=== PATIENT | female | born 1965 | race American Indian/Alaskan Native ===

== ENCOUNTER 2016-06-13 14:10 | Outpatient (CLI) | payer OTHER ==
--- NOTE | 2016-06-13 15:43 | XRay Report ---
ROUTINE CHEST, TWO VIEWS: PA and lateral views demonstrate the heart and mediastinal contour to be of normal size and shape. The lungs are clear and fully expanded and the soft tissues and bony structures are normal. IMPRESSION: Normal study.
== END 2016-06-13 14:11 | disposition home or self-care (01) ==
LOC: SPVIMAG 14:10
PROVIDERS: ATTEND Family Medicine Adult Medicine
DX: R07.9 Chest pain, unspecified (principal)
CPT/HCPCS: 71020

== ENCOUNTER 2017-01-17 06:20 | Emergency (ER) | payer OTHER ==
[2017-01-17] MEDS ORDERED: BABY ASPIRIN PO ONE (07:00)
--- NOTE | 2017-01-17 07:03 | Emergency Department Report ---
ED Chest Pain HPI - General Chief Complaint: Chest Pain Stated Complaint: CP Time Seen by Provider: 01/17/17 06:54 Source: patient Mode of arrival: Ambulatory Limitations: No Limitations - History of Present Illness Initial Comments: This is a 51-year-old -[place] female who presents to the emergency department, dropped off by a friend, with complaint of some chest discomfort and palpitations that started after waking up this morning. The chest discomfort as a dull tingling sensation in the mid chest and patient says that there is some radiation towards the left arm. She denies any shortness of breath, nausea, vomiting, cough, fever, back pain or diaphoresis. She has a past medical history of mitral valve prolapse. She woke up and took a baby aspirin and metoprolol, which she takes chronically, as well as taking a Xanax. No recent travel, immobility. She denies any history of HI, CVA, PE/DVT. Her primary care doctor is a Alecia Cornelius. Patient was here 2 years ago and had a negative myocardial perfusion scan/stress test at that time. - Related Data Home Medications Medication Instructions Recorded Confirmed Last Taken ALPRAZolam [Xanax TAB] 1 mg PO BID 01/10/15 01/17/17 01/16/17 Fluticasone [Flonase] 1 spray NS QDAY 01/10/15 01/17/17 Unknown Metoprolol [Lopressor TAB] 50 mg PO BID 01/10/15 01/17/17 01/16/17 Montelukast [Singulair] 10 mg PO QDAY 01/10/15 01/17/17 01/16/17 Potassium Chloride [K-Dur] 20 meq PO QDAY 01/10/15 01/17/17 01/16/17 Iron Fum,Ps/FA/Vit B with C #9 1 each PO QDAY 09/29/15 01/17/17 01/16/17 [Integra Plus Capsule] Allergies Allergy/AdvReac Type Severity Reaction Status Date / Time sulfamethoxazole Allergy Rash Verified 07/01/13 21:04 [From ] trimethoprim [From ] Allergy Rash Verified 07/01/13 21:04 Heart Score - HEART Score History: Slightly suspicious EKG: Normal Age: 45-65 Risk factors: No known risk factors Troponin: < normal limit HEART Score: 1 - Critical Actions Critical Actions: 0-3 pts:0.9-1.7%risk of adverse cardiac event.Candidate for discharge ED Review of Systems ROS: Stated complaint: CP Other details as noted in HPI Comment: All other systems reviewed and negative Constitutional: denies: chills, fever Eyes: denies: eye pain, eye discharge, vision change ENT: denies: ear pain, throat pain Respiratory: shortness of breath. denies: cough Cardiovascular: chest pain, palpitations. denies: edema Gastrointestinal: denies: abdominal pain, nausea, diarrhea Genitourinary: denies: urgency, dysuria, discharge Musculoskeletal: denies: back pain, joint swelling, arthralgia Skin: denies: rash, lesions Neurological: denies: headache, weakness, paresthesias ED Past Medical Hx - Past Medical History Previous Medical History?: Yes Hx Hypertension: Yes (Hx of mitral valve prolapse no issues being folloed by lisw) Hx Congestive Heart Failure: No Hx GERD: Yes Hx Arthritis: Yes Hx Headaches / Migraines: Yes Hx Psychiatric Treatment: Yes (anxiety stress) Hx HIV: No Additional medical history: MVP, BURSITIS - Surgical History Past Surgical History?: Yes Additional Surgical History: colonoscopy 06/2012, PARTIAL HYSTERECTOMY - Social History Smoking Status: Never Smoker Substance Use Type: None - Medications Home Medications: Home Medications Medication Instructions Recorded Confirmed Last Taken Type ALPRAZolam [Xanax TAB] 1 mg PO BID 01/10/15 01/17/17 01/16/17 History Fluticasone [Flonase] 1 spray NS QDAY 01/10/15 01/17/17 Unknown History Metoprolol [Lopressor TAB] 50 mg PO BID 01/10/15 01/17/17 01/16/17 History Montelukast [Singulair] 10 mg PO QDAY 01/10/15 01/17/17 01/16/17 History Potassium Chloride [K-Dur] 20 meq PO QDAY 01/10/15 01/17/17 01/16/17 History Iron Fum,Ps/FA/Vit B with C #9 1 each PO QDAY 09/29/15 01/17/17 01/16/17 History [Integra Plus Capsule] ED Physical Exam - General Limitations: No Limitations - Other Other exam information: GENERAL: The patient is well-developed well-nourished. HENT: Normocephalic. Atraumatic. Patient has moist mucous membranes. EYES: Extraocular motions are intact. Pupils equal reactive to light bilaterally. NECK: Supple. Trachea is midline. CHEST/LUNGS: Clear to auscultation. There is no respiratory distress noted. There is some reproducible pain to palpation of the chest wall. HEART/CARDIOVASCULAR: Regular. There is no tachycardia. There is no gallop rub or murmur. ABDOMEN: Abdomen is soft, nontender. Patient has normal bowel sounds. There is no abdominal distention. SKIN: Skin is warm and dry. NEURO: The patient is awake, alert, and oriented. The patient is cooperative. The patient has no focal neurologic deficits. The patient has normal speech. MUSCULOSKELETAL: There is no tenderness or deformity. There is no limitation range of motion. There is no evidence of acute injury. ED Course Vital Signs 01/17/17 01/17/17 01/17/17 06:35 07:14 07:16 Temperature 98.4 F 98.4 F Pulse Rate 78 72 Respiratory 18 18 18 Rate Blood Pressure 132/70 Blood Pressure 123/74 [Left] O2 Sat by Pulse 99 100 Oximetry 01/17/17 10:48 Temperature 97.9 F Pulse Rate 76 Respiratory 18 Rate Blood Pressure Blood Pressure 116/73 [Left] O2 Sat by Pulse 100 Oximetry - Consultations Consultation #1: I spoke with the PA for [facility] and based on the presentation, the lab and imaging results and the patient's previous workup with [facility] , they feel that the patient is safe for discharge home and they haven't made an appointment for her to see Dr. Kev Deleon on January 24 at 11 AM. 01/17/17 10:39 JHOAN score - Jhoan Score Age > 65: (0) No Aspirin use within the Past 7 Days: (0) No 3 or more CAD Risk Factors: (0) No 2 or more Angina events in past 24 hrs: (1) Yes Known CAD with more than 50% Stenosis: (0) No Elevated Cardiac Markers: (0) No ST Deviation Greater than 0.5mm: (0) No JHOAN Score: 1 ED Medical Decision Making - Lab Data Result diagrams: 01/17/17 06:56 01/17/17 06:56 - EKG Data -: EKG Interpreted by Me EKG shows normal: sinus rhythm, axis, intervals, QRS complexes, ST-T waves Rate: normal - EKG Data When compared to previous EKG there are: previous EKG unavailable Interpretation: normal EKG - Radiology Data Radiology results: image reviewed interpreted by me: Chest x-ray does not show any acute process. There are no pleural effusions, obvious pneumonia and there is no pneumothorax. - Medical Decision Making 51-year-old female presents to emergency department with some chest pain and palpitations that started earlier today. Heart and lung sounds are normal to auscultation. EKG does not show any signs of ST elevation HI, ischemia or dysrhythmia. Labs are unremarkable including negative troponins 2. Chest x- ray does not show any acute process. She is low on the Heart score criteria and has a JHOAN score of one of her pain is consider angina and 0 if not. Her pain is reproducible to palpation of the chest wall. She is low on the well's score criteria and on top of that she does not have any shortness of breath, hypoxia, tachycardia or tachypnea. I spoke with [facility] cardiology who feels that she is safe for discharge home and has set her up for an appointment on January [address] Deleon. - Differential Diagnosis HI, costal chondritis, pneumonia, GERD Critical Care Time: No Critical care attestation.: If time is entered above; I have spent that time in minutes in the direct care of this critically ill patient, excluding procedure time. ED Disposition Clinical Impression: Palpitations Chest pain Qualifiers: Chest pain type: unspecified Qualified Code(s): R07.9 - Chest pain, unspecified Disposition: DC-01 TO HOME OR SELFCARE Is pt being admited?: No Condition: Stable Instructions: Chest Pain (ED), Palpitations (ED) Additional Instructions: Please follow up with the lisw. An appointment has been made on her behalf to see Dr. Kev Deleon on January 24 at 11 AM. Return to the emergency Department with any worsening of your symptoms or any acute distress. Referrals: PRIMARY MD BEVERLY [Primary Care Provider] - 3-5 Days KEV DELEON MD [Staff Physician] - 01/24/17 1:00 pm Time of Disposition: 10:41
[2017-01-17 07:23] LABS: Hematocrit 34.2 % (30.3-42.9); Hemoglobin 11.2 gm/dl (10.1-14.3); Mean Corpuscular HGB Conc 33 % (30-34); Mean Corpuscular Hemoglobin 31 pg (28-32); Mean Corpuscular Volume 94 fl (79-97); Platelet Count 219 K/mm3 (140-440); Red Blood Count 3.63 M/mm3 (3.65-5.03); Red Cell Distribution Width 13.9 % (13.2-15.2); White Blood Count 7.3 K/mm3 (4.5-11.0)
[2017-01-17 07:24] LABS: Anion Gap 16 mmol/L; BUN/Creatinine Ratio 17.14; Blood Urea Nitrogen 12 mg/dL (7-17); Calcium 9.1 mg/dL (8.4-10.2); Carbon Dioxide 25 mmol/L (22-30); Chloride 103.3 mmol/L (98-107); Glucose 103 mg/dL (65-100); Potassium 3.8 mmol/L (3.6-5.0); Sodium 140 mmol/L (137-145)
[2017-01-17 07:26] LABS: Basophils % (Manual) 0 % (0.0-1.8); Blastocytes % (Manual) 0 %; Eosinophils % (Manual) 0 % (0.0-4.3)
[2017-01-17 07:27] LABS: Anisocytosis 1+; Diff Status Complete; Platelet Estimate Cons; Tear Drop Cells Rare
--- NOTE | 2017-01-17 07:38 | XRay Report ---
ROUTINE CHEST, TWO VIEWS: HISTORY: chest pain. The trachea, heart, mediastinal contour, lung ambriz and bony thorax are unremarkable. IMPRESSION: Unremarkable chest x-ray.
[2017-01-17 10:49] VITALS: BP 116/73
== END 2017-01-17 10:49 | disposition home or self-care (01) ==
LOC: ED 06:20
DX: R00.2 Palpitations (principal); R07.9 Chest pain, unspecified; I10 Essential (primary) hypertension; K21.9 Gastro-esophageal reflux disease without esophagitis; M19.90 Unspecified osteoarthritis, unspecified site; G43.909 Migraine, unspecified, not intractable, without status migrainosus; F41.9 Anxiety disorder, unspecified; Z88.2 Allergy status to sulfonamides; Z90.711 Acquired absence of uterus with remaining cervical stump
CPT/HCPCS: 36415; 71020; 80048; 84484; 85007; 85025; 93005; 93010

== ENCOUNTER 2017-01-25 13:06 | Outpatient (CLI) | payer OTHER ==
--- NOTE | 2017-01-25 14:04 | Mammography Report ---
BILATERAL DIGITAL SCREENING MAMMOGRAM with CAD: 01/25/17 13:06:00 CLINICAL: Routine screening. COMPARISON: 01/23/16 and 12/23/14 FINDINGS: The breasts are heterogeneously dense, which may obscure small masses.No mass, architectural distortion or suspicious calcifications. IMPRESSION: No mammographic evidence of malignancy. BI-RADS CATEGORY: 1 -- Negative RECOMMENDATION: Routine mammographic screening in one year. COMMENT: Patient follow-up letters are generated by our [employer] application.
== END 2017-01-25 13:07 | disposition home or self-care (01) ==
LOC: SPVWC 13:06
PROVIDERS: ATTEND Family Medicine Adult Medicine
DX: Z12.31 Encounter for screening mammogram for malignant neoplasm of breast (principal)
CPT/HCPCS: 77067; G0202

== ENCOUNTER 2019-07-03 11:27 | Emergency (ER) | payer SELFPAY ==
[2019-07-03 11:32] VITALS: BP 132/77
[2019-07-03 12:30] LABS: Bacteria,Urine 3+ /HPF (Negative); Bilirubin,Urine NEG (Negative); Blood,Urine MOD (Negative); Color,Urine Yellow (Yellow); Mucus,Urine FEW /HPF; Protein,Urine <15 mg/dL mg/dL (Negative); Urobilinogen,Urine < 2.0 mg/dL (<2.0)
--- NOTE | 2019-07-03 12:34 | Emergency Department Report ---
Chief Complaint: Abdominal Pain Stated Complaint: RT SIDE/LOWER BACK/PAIN Time Seen by Provider: 07/03/19 12:32 - HPI History of Present Illness: This is a 54 y.o. F. that presents to the ER with right flank pain for 2 days. Associated symptoms urinary frequency and dysuria. Denies hematuria, chills, radiating pain, fever, nausea, and diarrhea. - ROS Review of Systems: ROS: Stated complaint: abdominal cramping, dysuria, and frequency. Other details as noted in HPI Comment: All other systems reviewed and negative - Exam Vital Signs: Vital Signs 07/03/19 11:31 Temperature 98.6 F Pulse Rate 71 Respiratory 18 Rate Blood Pressure 132/77 O2 Sat by Pulse 100 Oximetry Physical Exam: - General Limitations: No Limitations General appearance: alert, in no apparent distress - Head Head exam: Present: atraumatic, normocephalic - Eye Eye exam: Present: normal appearance - ENT ENT exam: Present: mucous membranes dry - Respiratory Respiratory exam: Present: normal lung sounds bilaterally. Absent: respiratory distress, wheezes, rales, rhonchi, stridor, chest wall tenderness, accessory muscle use, decreased breath sounds, prolonged expiratory - Cardiovascular Cardiovascular Exam: Present: regular rate, normal rhythm, normal heart sounds. Absent: systolic murmur, diastolic murmur, rubs, gallop - GI/Abdominal GI/Abdominal exam: Present: soft, normal bowel sounds. Absent: tenderness, distended, guarding, rebound, rigid - Back Back exam: Present: positive right CVA tenderness. - Neurological Exam Neurological exam: Present: alert, oriented X3 - Psychiatric Psychiatric exam: Present: normal affect, normal mood - Skin Skin exam: Present: warm, dry, intact MSE screening note: Focused history and physical exam performed. Due to findings the following was ordered: ED Medical Decision Making - Lab Data Lab Results 07/03/19 Range/Units Unknown Urine Color Yellow (Yellow) Urine Turbidity Cloudy (Clear) Urine pH 7.0 (5.0-7.0) Ur Specific [place] 1.011 (1.003-1.030) Urine Protein <15 mg/dl (Negative) mg/dL Urine Glucose (UA) Neg (Negative) mg/dL Urine Ketones Neg (Negative) mg/dL Urine Blood Mod (Negative) Urine Nitrite Neg (Negative) Urine Bilirubin Neg (Negative) Urine Urobilinogen < 2.0 (<2.0) mg/dL Ur Leukocyte Esterase Sm (Negative) Urine WBC (Auto) 17.0 H (0.0-6.0) /HPF Urine RBC (Auto) 14.0 (0.0-6.0) /HPF U Epithel Cells (Auto) 5.0 (0-13.0) /HPF Urine Bacteria (Auto) 3+ (Negative) /HPF Urine Mucus Few /HPF - Medical Decision Making This is a 54 y.o. F. that presents to the ER with pelvic cramps, urinary frequency, and dysuria for 2 days. VS and in no acute distress. Patient denies radiating pain, vaginal discharge, or STD risk. This is unlikely ovarian to rsion, PID, gonorrhea/chlamydia, SBO, appendicitis, or acute abdomen. Workup: UA. Urinalysis positive for acute cystitis. Start macrobid and pyridium. Strict return precautions given. Advised to follow up with primary care provider Dr. Orellana in 24-72 hours. Patient discharged home stable. ED Disposition for MSE Clinical Impression: Urinary frequency, Pelvic cramping, Dysuria, Acute cystitis with hematuria Disposition: - TO HOME OR SELFCARE Is pt being admited?: No Condition: Stable Instructions: Urinary Tract Infection in Women (ED), Abdominal Pain (ED) Additional Instructions: Increase fluid intake to 1L-2L per day. Complete antibiotics as prescribed. Follow up with your primary care doctor with worsening symptoms. Prescriptions: Nitrofurantoin [place]/M-Cryst [Macrobid CAP] 100 mg PO Q12HR 5 Days #10 capsule Phenazopyridine [Pyridium] 200 mg PO BID #6 tab Referrals: MARLON ORELLAAN MD [Primary Care Provider] - 3-5 Days Forms: Work/School Release Form(ED) Time of Disposition: 12:39
== END 2019-07-03 12:40 | disposition home or self-care (01) ==
LOC: ED 11:27
DX: R35.0 Frequency of micturition (principal); R30.0 Dysuria; N30.01 Acute cystitis with hematuria; R10.2 Pelvic and perineal pain; Z88.2 Allergy status to sulfonamides; Z88.8 Allergy status to other drugs, medicaments and biological substances
CPT/HCPCS: 81001; 87076; 87086; 87186

== ENCOUNTER 2020-02-29 11:32 | Emergency (ER) | payer OTHER ==
[2020-02-29] MEDS ORDERED: HYOSCYAMINE SUBL 0.125 MG TAB SL ONE (12:46)
[2020-02-29] MEDS ORDERED: FAMOTIDINE 20 MG TAB PO ONE (12:46)
[2020-02-29] MEDS ORDERED: ALUM-MAG HYDROXIDE-SIMETHICONE 200-200-20MG/5ML ORAL LIQD 30 ML PO ONE (12:46)
--- NOTE | 2020-02-29 13:04 | Emergency Department Report ---
ED General Adult HPI - General Chief complaint: Abdominal Pain Stated complaint: CHEST/ABD PAIN Time Seen by Provider: 02/29/20 12:29 Source: patient Mode of arrival: Ambulatory Limitations: No Limitations - History of Present Illness Initial comments: Patient is a 55-year-old female presents emergency room with complaints of chest pain that radiates around the chest that began 4 days ago. She states that she also has some mild upper abdominal discomfort. She states that she has a history of GERD and believes her symptoms could be related. She denies any nausea, vomiting, diarrhea, cough, shortness of breath, fever, leg swelling. She denies any sick contacts. She has a past medical history of palpitations and GERD. She has an allergy to Bactrim. Patient states that she is currently seeing a GI doctor. She states that she is on omeprazole. She states that 2 weeks ago she had an MRI of her abdomen which she reports was normal. She st ates that she is also had a EGD with GI which she reports was normal. - Related Data Home Medications Medication Instructions Recorded Confirmed Last Taken ALPRAZolam [Xanax TAB] 1 mg PO BID 01/10/15 01/17/17 01/16/17 Fluticasone [Flonase] 1 spray NS QDAY 01/10/15 01/17/17 Unknown Metoprolol [Lopressor TAB] 50 mg PO BID 01/10/15 01/17/17 01/16/17 Montelukast [Singulair] 10 mg PO QDAY 01/10/15 01/17/17 01/16/17 Potassium Chloride [K-Dur] 20 meq PO QDAY 01/10/15 01/17/17 01/16/17 Iron Fum,Ps/Folic/Bcomp,C No.9 1 each PO QDAY 09/29/15 01/17/17 01/16/17 [Integra Plus Capsule] Previous Rx's Medication Instructions Recorded Last Taken Type Nitrofurantoin [place]/M-Cryst 100 mg PO Q12HR 5 Days #10 capsule 07/03/19 Unknown Rx [Macrobid CAP] Phenazopyridine [Pyridium] 200 mg PO BID #6 tab 07/03/19 Unknown Rx Mag Hydrox/Aluminum Hyd/Simeth 15 ml PO TID PRN #1 bottle 02/29/20 Unknown Rx [Maalox Advanced Suspension] Sucralfate [Carafate] 1 gm PO ACHS 7 Days #21 tablet 02/29/20 Unknown Rx Allergies Allergy/AdvReac Type Severity Reaction Status Date / Time sulfamethoxazole Allergy Rash Verified 07/03/19 12:32 [From ] trimethoprim [From ] Allergy Rash Verified 07/03/19 12:32 ED Review of Systems ROS: Stated complaint: CHEST/ABD PAIN Other details as noted in HPI Comment: All other systems reviewed and negative ED Past Medical Hx - Past Medical History Previous Medical History?: Yes Hx Hypertension: Yes Hx Congestive Heart Failure: No Hx GERD: Yes Hx Arthritis: Yes Hx Headaches / Migraines: Yes Hx Psychiatric Treatment: Yes (anxiety stress) Hx HIV: No Additional medical history: MVP, BURSITIS - Surgical History Past Surgical History?: Yes Additional Surgical History: colonoscopy 06/2012, PARTIAL HYSTERECTOMY - Social History Smoking Status: Never Smoker - Medications Home Medications: Home Medications Medication Instructions Recorded Confirmed Last Taken Type ALPRAZolam [Xanax TAB] 1 mg PO BID 01/10/15 01/17/17 01/16/17 History Fluticasone [Flonase] 1 spray NS QDAY 01/10/15 01/17/17 Unknown History Metoprolol [Lopressor TAB] 50 mg PO BID 01/10/15 01/17/17 01/16/17 History Montelukast [Singulair] 10 mg PO QDAY 01/10/15 01/17/17 01/16/17 History Potassium Chloride [K-Dur] 20 meq PO QDAY 01/10/15 01/17/17 01/16/17 History Iron Fum,Ps/Folic/Bcomp,C No.9 1 each PO QDAY 09/29/15 01/17/17 01/16/17 History [Integra Plus Capsule] Nitrofurantoin [place]/M-Cryst 100 mg PO Q12HR 5 Days #10 capsule 07/03/19 Unknown Rx [Macrobid CAP] Phenazopyridine [Pyridium] 200 mg PO BID #6 tab 07/03/19 Unknown Rx Mag Hydrox/Aluminum Hyd/Simeth 15 ml PO TID PRN #1 bottle 02/29/20 Unknown Rx [Maalox Advanced Suspension] Sucralfate [Carafate] 1 gm PO ACHS 7 Days #21 tablet 02/29/20 Unknown Rx ED Physical Exam - General Limitations: No Limitations General appearance: alert, in no apparent distress - Head Head exam: Present: atraumatic, normocephalic - Eye Eye exam: Present: normal appearance - ENT ENT exam: Present: mucous membranes moist - Respiratory Respiratory exam: Present: normal lung sounds bilaterally. Absent: respiratory distress, wheezes, rales, rhonchi, stridor, chest wall tenderness, accessory muscle use, decreased breath sounds, prolonged expiratory - Cardiovascular Cardiovascular Exam: Present: regular rate, normal rhythm, normal heart sounds. Absent: systolic murmur, diastolic murmur, rubs, gallop - GI/Abdominal GI/Abdominal exam: Present: soft, normal bowel sounds. Absent: distended, tenderness, guarding, rebound, rigid - Neurological Exam Neurological exam: Present: alert, oriented X3 - Psychiatric Psychiatric exam: Present: normal affect, normal mood - Skin Skin exam: Present: warm, dry, intact ED Course Vital Signs 02/29/20 02/29/20 11:37 15:18 Temperature 98.2 F Pulse Rate 70 60 Respiratory 18 16 Rate Blood Pressure 124/75 116/76 [Right] O2 Sat by Pulse 100 100 Oximetry ED Medical Decision Making - Lab Data Result diagrams: 02/29/20 13:17 02/29/20 13:17 Lab Results 02/29/20 02/29/20 Range/Units 13:17 13:17 WBC 3.9 L (4.5-11.0) K/mm3 RBC 3.59 L (3.65-5.03) M/mm3 Hgb 11.1 (10.1-14.3) gm/dl Hct 33.7 (30.3-42.9) % MCV 94 (79-97) fl MCH 31 (28-32) pg MCHC 33 (30-34) % RDW 13.8 (13.2-15.2) % Plt Count 233 (140-440) K/mm3 Lymph % (Auto) 50.3 H (13.4-35.0) % [place] % (Auto) 7.1 (0.0-7.3) % Eos % (Auto) 2.7 (0.0-4.3) % Baso % (Auto) 0.7 (0.0-1.8) % Lymph # (Auto) 2.0 (1.2-5.4) K/mm3 [place] # (Auto) 0.3 (0.0-0.8) K/mm3 Eos # (Auto) 0.1 (0.0-0.4) K/mm3 Baso # (Auto) 0.0 (0.0-0.1) K/mm3 Seg Neutrophils % 39.2 L (40.0-70.0) % Seg Neutrophils # 1.5 L (1.8-7.7) K/mm3 Sodium 140 (137-145) mmol/L Potassium 3.6 (3.6-5.0) mmol/L Chloride 105.5 (98-107) mmol/L Carbon Dioxide 22 (22-30) mmol/L Anion Gap 16 mmol/L BUN 10 (7-17) mg/dL Creatinine 0.7 (0.6-1.2) mg/dL Estimated GFR > 60 ml/min BUN/Creatinine Ratio 14 % Glucose 91 (65-100) mg/dL Calcium 9.5 (8.4-10.2) mg/dL Total Bilirubin 0.50 (0.1-1.2) mg/dL AST 18 (5-40) units/L ALT 9 (7-56) units/L Alkaline Phosphatase 61 (35-129) units/L Troponin T < 0.010 (0.00-0.029) ng/mL Total Protein 8.1 (6.3-8.2) g/dL Albumin 4.3 (3.9-5) g/dL Albumin/Globulin Ratio 1.1 % Lipase 24 (13-60) units/L Vital Signs 02/29/20 02/29/20 11:37 15:18 Temperature 98.2 F Pulse Rate 70 60 Respiratory 18 16 Rate Blood Pressure 124/75 116/76 [Right] O2 Sat by Pulse 100 100 Oximetry - EKG Data EKG shows normal: sinus rhythm, axis, intervals, QRS complexes, ST-T waves Rate: normal - Radiology Data Radiology results: report reviewed ACUTE ABDOMEN SERIES INDICATION / CLINICAL INFORMATION: abd pain/chest pain. COMPARISON: None available. FINDINGS: Bowel gas pattern is unremarkable, not indicative of obstruction. No free air or gross abnormal mass. Accompanying chest radiograph shows no acute disease. Signer Name: Anjel Austin MD Signed: 02/29/2020 1:21 PM Workstation Name: [id number] Transcribed By: TM Dictated By: Anjel Austin MD Electronically Authenticated By: Anjel Austin MD Signed Date/Time: 02/29/20 132 DD/ 1320 TD/TT: - Medical Decision Making Patient is a 55-year-old female presents emergency room with complaints of chest pain that radiates around the chest that began 4 days ago. She states that she also has some mild upper abdominal discomfort. She states that she has a history of GERD and believes her symptoms could be related. She denies any nausea, vomiting, diarrhea, cough, shortness of breath, fever, leg swelling. She denies any sick contacts. She has a past medical history of palpitations and GERD. She has an allergy to Bactrim. Patient states that she is currently seeing a GI doctor. She states that she is on omeprazole. She states that 2 weeks ago she had an MRI of her abdomen which she reports was normal. She states that she is also had a EGD with GI which she reports was normal. Vitals are normal. On exam no abdominal tenderness palpation, no guarding, no rebound, no rigidity, normal bowel sounds, no peritoneal signs. Labs are stable. Troponin is negative. EKG is within normal limits. Abdominal x-ray with chest Bowel gas pattern is unremarkable, not indicative of obstruction. No free air or gross abnormal mass. Accompanying chest radiograph shows no acute disease. Patient given Pepcid, Levsin, Maalox and symptoms improved and patient was feeling much better and ready to go home. Symptoms appear most consistent with patient's diagnosis of GERD. She is low risk based on Wells criteria for PE, PE unlikely. Heart score is 1, YOLY score is 0, very low risk for cardiac event, do not suspect ACS. Patient given prescription for Carafate and Maalox. Advised patient Please take medication as prescribed. Increase your water intake. Please follow the diet for acid reflux. Follow-up with your primary care doctor. Follow-up with your GI doctor. Return the emergency room for any new or worsening symptoms. - Differential Diagnosis PUD, GERD, gas pain, ACS, cholecystitis, PTX, PNA, pericarditis Critical care attestation.: If time is entered above; I have spent that time in minutes in the direct care of this critically ill patient, excluding procedure time. ED Disposition Clinical Impression: Chest pain Qualifiers: Chest pain type: unspecified Qualified Code(s): R07.9 - Chest pain, unspecified Abdominal pain Qualifiers: Abdominal location: upper abdomen, unspecified Qualified Code(s): R10.10 - Upper abdominal pain, unspecified GERD (gastroesophageal reflux disease) Qualifiers: Esophagitis presence: without esophagitis Qualified Code(s): K21.9 - Gastro-esophageal reflux disease without esophagitis Disposition: TO HOME OR SELFCARE Is pt being admited?: No Does the pt Need Aspirin: No Condition: Stable Instructions: Chest Pain (ED), Diet for Ulcers and Gastritis (ED), Gastroesophageal Reflux Disease (ED), Abdominal Pain (ED) Additional Instructions: Please take medication as prescribed. Increase your water intake. Please follow the diet for acid reflux. Follow-up with your primary care doctor. Follow-up with your GI doctor. Return the emergency room for any new or worsening symptoms. Prescriptions: Sucralfate [Carafate] 1 gm PO ACHS 7 Days #21 tablet Mag Hydrox/Aluminum Hyd/Simeth [Maalox Advanced Suspension] 15 ml PO TID PRN #1 bottle PRN Reason: acid reflux Referrals: your, primary care doctor [Other] - 2-3 Days your, GI doctor [Other] - 2-3 Days Time of Disposition: 15:07 Print Language: VENEZUELAN
--- NOTE | 2020-02-29 13:25 | XRay Report ---
ACUTE ABDOMEN SERIES INDICATION / CLINICAL INFORMATION: abd pain/chest pain. COMPARISON: None available. FINDINGS: Bowel gas pattern is unremarkable, not indicative of obstruction. No free air or gross abnormal mass. Accompanying chest radiograph shows no acute disease. Signer Name: Anjel Austin MD Signed: 02/29/2020 1:21 PM Workstation Name: [id number]
[2020-02-29 13:32] LABS: Basophils % (Auto) 0.7 % (0.0-1.8); Eosinophils # (Auto) 0.1 K/mm3 (0.0-0.4); Eosinophils % (Auto) 2.7 % (0.0-4.3); Hematocrit 33.7 % (30.3-42.9); Hemoglobin 11.1 gm/dl (10.1-14.3); Lymphocytes % (Auto) 50.3 % (13.4-35.0); Mean Corpuscular HGB Conc 33 % (30-34); Mean Corpuscular Volume 94 fl (79-97); Monocytes # (Auto) 0.3 K/mm3 (0.0-0.8); Monocytes % (Auto) 7.1 % (0.0-7.3); Platelet Count 233 K/mm3 (140-440); Red Blood Count 3.59 M/mm3 (3.65-5.03); Red Cell Distribution Width 13.8 % (13.2-15.2)
[2020-02-29 14:07] LABS: Alanine Aminotransferase 9 units/L (7-56); Albumin 4.3 g/dL (3.9-5); Blood Urea Nitrogen 10 mg/dL (7-17)
[2020-02-29 14:40] LABS: Calcium 9.5 mg/dL (8.4-10.2); Hemolysis Index 2
[2020-02-29 15:05] LABS: BUN/Creatinine Ratio 14
[2020-02-29 15:19] VITALS: BP 116/76
== END 2020-02-29 16:01 | disposition home or self-care (01) ==
LOC: ED 11:32
DX: K21.9 Gastro-esophageal reflux disease without esophagitis (principal); I10 Essential (primary) hypertension; M13.88 Other specified arthritis, other site; G43.909 Migraine, unspecified, not intractable, without status migrainosus; F41.9 Anxiety disorder, unspecified; Z90.710 Acquired absence of both cervix and uterus; Z79.899 Other long term (current) drug therapy; Z88.2 Allergy status to sulfonamides
CPT/HCPCS: 36415; 74022; 80053; 83690; 84484; 85025; 93005

== ENCOUNTER 2020-09-14 17:20 | Emergency (ER) | payer OTHER ==
[2020-09-14 20:00] LABS: Alanine Aminotransferase 9 units/L (7-56); Albumin 4.3 g/dL (3.9-5); BUN/Creatinine Ratio 21; Basophils % (Auto) 0.4 % (0.0-1.8); Blood Urea Nitrogen 17 mg/dL (7-17); Calcium 9.3 mg/dL (8.4-10.2); Eosinophils # (Auto) 0.1 K/mm3 (0.0-0.4); Eosinophils % (Auto) 1.6 % (0.0-4.3); Hematocrit 34.4 % (30.3-42.9); Hemoglobin 11.5 gm/dl (10.1-14.3); Hemolysis Index 15; Lymphocytes # (Auto) 2.2 K/mm3 (1.2-5.4); Lymphocytes % (Auto) 44.6 % (13.4-35.0); Mean Corpuscular HGB Conc 33 % (30-34); Mean Corpuscular Volume 94 fl (79-97); Monocytes # (Auto) 0.4 K/mm3 (0.0-0.8); Monocytes % (Auto) 8.5 % (0.0-7.3); Platelet Count 199 K/mm3 (140-440); Red Blood Count 3.67 M/mm3 (3.65-5.03); Red Cell Distribution Width 13.5 % (13.2-15.2)
--- NOTE | 2020-09-14 20:11 | XRay Report ---
CHEST 2 VIEWS INDICATION / CLINICAL INFORMATION: CP. COMPARISON: On 717 FINDINGS: SUPPORT DEVICES: None. HEART / MEDIASTINUM: No significant abnormality. LUNGS / PLEURA: No significant pulmonary or pleural abnormality. No pneumothorax. ADDITIONAL FINDINGS: No significant additional findings. IMPRESSION: No significant abnormality or interval change from 01/17/2017 Signer Name: Norman Fountain MD FACR Signed: 09/14/2020 8:07 PM Workstation Name: [id number]
--- NOTE | 2020-09-14 20:15 | Event Note ---
ED Screening Note Date of service: 09/14/20 Time: 20:13 ED Screening Note: 55-year-old female patient presents to the emergency department with complaints of intermittent epigastric pain radiating to her chest starting 10 days ago. Today, the pain was worse and has lasted longer, prompting her to come to the emergency department. Patient states she is typically very active and lifts weights on a regular basis. However, she has been unable to participate in her usual exercise routine due to the pain. States the pain is "difficult to describe, feels sort of tingly." Patient is under the care of a primary care provider and her stress test in May of this year was negative. Takes me toprolol for palpitations. No history of hypertension, diabetes, hyperlipidemia, tobacco use. Denies fever, chills, cough, shortness of breath, wheezing, nausea, vomiting, diaphoresis, syncope, lower extremity pain/swelling. Denies all other complaints at this time General: Awake, appropriately interactive, no acute distress. Neck: Supple. Full range of motion intact. Cardiovascular: Regular rate and rhythm. Normal peripheral perfusion. Pulmonary: Clear to auscultation bilaterally. No respiratory distress. Patient is speaking normally without use of accessory muscles. Skin: No apparent rashes or lesions. Neurological: No facial asymmetry. Speech is clear. Follows commands. Patient is alert and oriented. Musculoskeletal: Moves all four extremities spontaneously with normal range of motion. Psych: Cooperative. Appropriate mood and affect. I have greeted and performed a focused rapid initial assessment of this patient. A comprehensive ED assessment and evaluation of the patient, analysis of all test results, and completion of the medical decision-making process will be conducted by additional ED providers. This initial assessment/diagnostic orders/clinical plan/treatment(s) is/are subject to change based on patients health status, clinical progression and re-assessment. Further treatment and workup at subsequent clinical provider's discretion. Patient/guardian urged not to elope from the ED as their condition may be serious if not clinically assessed and managed.
[2020-09-15] MEDS ORDERED: ALUM-MAG HYDROXIDE-SIMETHICONE 200-200-20MG/5ML ORAL LIQD 30 ML PO ONE (02:23)
[2020-09-15] MEDS ORDERED: LIDOCAINE VISCOUS 2% 15 ML ORAL LIQD PO ONE (02:23)
--- NOTE | 2020-09-15 02:25 | Emergency Department Report ---
ED Chest Pain HPI - General Chief Complaint: Chest Pain Stated Complaint: STOMACH/CHEST PAIN PUI?: No Time Seen by Provider: 09/15/20 02:10 Source: patient Mode of arrival: Ambulatory Limitations: No Limitations - History of Present Illness Initial Comments: Patient is a 55-year-old female that presents emergency room with complaints of chest pain and epigastric pain. Patient states that her epigastric pain and chest pain started approximately 1 week ago. Patient states that the pain is a burning sensation. Patient states it is in her epigastric area and radiates up her esophagus and into her chest and down into her stomach area. Patient states the pain is 6 out of 10. Patient also complains of burping. Patient states she has a history of acid reflux and is not taking any omeprazole or Nexium. 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 Patient denies recent travel. Patient denies recent international travel. Patient denies exposure to the novel coronavirus. Patient denies sick contacts. Patient denies fever and chills. Patient denies cough. Patient denies diarrhea. Patient denies coming in contact with anybody with symptoms of the novel coronavirus. MD Complaint: chest pain -: Sudden Pain Location: substernal, epigastric Pain Radiation: abdomen Severity: severe Severity scale (0 -10): 10 Quality: other (Burning) Consistency: constant Improves With: antacids, rest Worsens With: eating re: denies: nausea, vomting, diaphoresis, dyspnea, sense of impending doom Other Symptoms: acid taste in mouth, burping. denies: cough, fever, syncope, rash, leg swelling, palpitations Treatments Prior to Arrival: other (Antacids) Aspirin use within the Past 7 Days: (0) No - Related Data On Oral Contraceptives: No Home Medications Medication Instructions Recorded Confirmed Last Taken ALPRAZolam [Xanax TAB] 1 mg PO BID 01/10/15 01/17/17 01/16/17 Fluticasone [Flonase] 1 spray NS QDAY 01/10/15 01/17/17 Unknown Metoprolol [Lopressor TAB] 50 mg PO BID 01/10/15 01/17/17 01/16/17 Montelukast [Singulair] 10 mg PO QDAY 01/10/15 01/17/17 01/16/17 Potassium Chloride [K-Dur] 20 meq PO QDAY 01/10/15 01/17/17 01/16/17 Iron Fum,Ps/Folic/Bcomp,C No.9 1 each PO QDAY 09/29/15 01/17/17 01/16/17 [Integra Plus Capsule] Previous Rx's Medication Instructions Recorded Last Taken Type Nitrofurantoin [place]/M-Cryst 100 mg PO Q12HR 5 Days #10 capsule 07/03/19 Unknown Rx [Macrobid CAP] Phenazopyridine [Pyridium] 200 mg PO BID #6 tab 07/03/19 Unknown Rx Mag Hydrox/Aluminum Hyd/Simeth 15 ml PO TID PRN #1 bottle 02/29/20 Unknown Rx [Maalox Advanced Suspension] Sucralfate [Carafate] 1 gm PO ACHS 7 Days #21 tablet 02/29/20 Unknown Rx Esomeprazole Magnesium [NexIUM] 40 mg PO QDAY 30 Days #30 09/15/20 Unknown Rx capsule.dr Allergies Allergy/AdvReac Type Severity Reaction Status Date / Time sulfamethoxazole Allergy Rash Verified 07/03/19 12:32 [From Janra] trimethoprim [From Janra] Allergy Rash Verified 07/03/19 12:32 Heart Score - HEART Score History: Slightly suspicious EKG: Normal Age: 45-65 Risk factors: No known risk factors Troponin: < normal limit HEART Score: 1 - EKG Read Time Time EKG Completed: 19:06 EKG Read Time: 19:08 ED Review of Systems ROS: Stated complaint: STOMACH/CHEST PAIN Other details as noted in HPI Constitutional: denies: chills, fever Eyes: denies: eye pain, eye discharge, vision change ENT: denies: ear pain, throat pain Respiratory: denies: cough, shortness of breath, wheezing Cardiovascular: as per HPI, chest pain. denies: palpitations Endocrine: no symptoms reported Gastrointestinal: as per HPI, abdominal pain. denies: nausea, diarrhea Genitourinary: denies: urgency, dysuria, discharge Musculoskeletal: denies: back pain, joint swelling, arthralgia Skin: denies: rash, lesions Neurological: denies: headache, weakness, paresthesias Psychiatric: denies: anxiety, depression Hematological/Lymphatic: denies: easy bleeding, easy bruising ED Past Medical Hx - Past Medical History Previous Medical History?: Yes Hx Hypertension: Yes Hx Congestive Heart Failure: No Hx GERD: Yes Hx Arthritis: Yes Hx Headaches / Migraines: Yes Hx Psychiatric Treatment: Yes (anxiety stress) Hx HIV: No Additional medical history: MVP, BURSITIS, palpitations - Surgical History Past Surgical History?: Yes Additional Surgical History: colonoscopy 06/2012, PARTIAL HYSTERECTOMY - Family History Family history: no significant - Social History Smoking Status: Never Smoker Substance Use Type: None - Medications Home Medications: Home Medications Medication Instructions Recorded Confirmed Last Taken Type ALPRAZolam [Xanax TAB] 1 mg PO BID 01/10/15 01/17/17 01/16/17 History Fluticasone [Flonase] 1 spray NS QDAY 01/10/15 01/17/17 Unknown History Metoprolol [Lopressor TAB] 50 mg PO BID 01/10/15 01/17/17 01/16/17 History Montelukast [Singulair] 10 mg PO QDAY 01/10/15 01/17/17 01/16/17 History Potassium Chloride [K-Dur] 20 meq PO QDAY 01/10/15 01/17/17 01/16/17 History Iron Fum,Ps/Folic/Bcomp,C No.9 1 each PO QDAY 09/29/15 01/17/17 01/16/17 History [Integra Plus Capsule] Nitrofurantoin [place]/M-Cryst 100 mg PO Q12HR 5 Days #10 capsule 07/03/19 Unknown Rx [Macrobid CAP] Phenazopyridine [Pyridium] 200 mg PO BID #6 tab 07/03/19 Unknown Rx Mag Hydrox/Aluminum Hyd/Simeth 15 ml PO TID PRN #1 bottle 02/29/20 Unknown Rx [Maalox Advanced Suspension] Sucralfate [Carafate] 1 gm PO ACHS 7 Days #21 tablet 02/29/20 Unknown Rx Esomeprazole Magnesium [NexIUM] 40 mg PO QDAY 30 Days #30 09/15/20 Unknown Rx capsule. ED Physical Exam - General Limitations: No Limitations General appearance: alert, in no apparent distress - Head Head exam: Present: atraumatic, normocephalic - Eye Eye exam: Present: normal appearance - ENT ENT exam: Present: mucous membranes moist - Neck Neck exam: Present: normal inspection - Respiratory Respiratory exam: Present: normal lung sounds bilaterally, chest wall tenderness. Absent: respiratory distress - Cardiovascular Cardiovascular Exam: Present: regular rate, normal rhythm. Absent: systolic murmur, diastolic murmur, rubs, gallop - GI/Abdominal GI/Abdominal exam: Present: soft, tenderness (Epigastric tenderness), normal bowel sounds - Extremities Exam Extremities exam: Present: normal inspection - Back Exam Back exam: Present: normal inspection - Neurological Exam Neurological exam: Present: alert, oriented X3 - Psychiatric Psychiatric exam: Present: normal affect, normal mood - Skin Skin exam: Present: warm, dry, intact, normal color. Absent: rash ED Course Vital Signs 09/14/20 09/15/20 09/15/20 19:00 02:20 02:30 Temperature 98.7 F Pulse Rate 71 65 Respiratory 18 16 11 L Rate Blood Pressure 110/68 109/58 O2 Sat by Pulse 100 100 Oximetry 09/15/20 09/15/20 09/15/20 03:01 03:31 04:01 Temperature Pulse Rate 62 76 64 Respiratory 12 10 L 12 Rate Blood Pressure 102/66 109/67 121/72 O2 Sat by Pulse 100 100 100 Oximetry 09/15/20 04:31 Temperature Pulse Rate 70 Respiratory 14 Rate Blood Pressure 110/66 O2 Sat by Pulse 99 Oximetry - Reevaluation(s) Reevaluation #1: Patient states her symptoms have resolved. Patient states she is feeling much better. I discussed all results and clinical findings with patient. I discussed plan of care with patient. Patient agrees with plan of care. Patient is stable for discharge. Patient will be discharged home. Patient given discharge instructions. Patient voiced understanding of discharge instructions. 09/15/20 03:53 YOLY score - Yoly Score Age > 65: (0) No Aspirin use within the Past 7 Days: (0) No 3 or more CAD Risk Factors: (0) No 2 or more Angina events in past 24 hrs: (1) Yes Known CAD with more than 50% Stenosis: (0) No Elevated Cardiac Markers: (0) No ST Deviation Greater than 0.5mm: (0) No YOLY Score: 1 ED Medical Decision Making - Lab Data Result diagrams: 09/14/20 19:18 09/14/20 19:18 - EKG Data -: EKG Interpreted by Me EKG shows normal: sinus rhythm, axis, intervals, QRS complexes, ST-T waves Rate: normal - Radiology Data Radiology results: report reviewed, image reviewed interpreted by me: Chest x-ray: No pneumonia, no pneumothorax, no foreign body, no osseous findings, no acute findings CHEST 2 VIEWS INDICATION / CLINICAL INFORMATION: CP. COMPARISON: On 71 FINDINGS: SUPPORT DEVICES: None. HEART / MEDIASTINUM: No significant abnormality. LUNGS / PLEURA: No significant pulmonary or pleural abnormality. No pneumothorax. ADDITIONAL FINDINGS: No significant additional findings. IMPRESSION: No significant abnormality or interval change from 01/17/2017 - Medical Decision Making Patient is a 55-year-old female that presents emergency room with epigastric pain and chest pain. Patient symptoms are clinically consistent with epigastric pain and gastritis and GERD. Patient's chest x-ray is negative for acute findings. Patient EKG is negative for acute findings and normal ST. I personally reviewed the chest x-ray and EKG. chest x-ray is negative for acute findings. Patient EKG is negative for acute findings and normal ST. I personal ly reviewed the chest x-ray and EKG. Patient's labs are essentially unremarkable. Patient's troponin is negative. Patient stable for discharge. 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 Patient information was faxed for local cardiology group because of her presentation of chest pain. Patient stable discharge. Patient given discharge. - Differential Diagnosis Chest pain, gastritis, dyspepsia, abdominal pain, GERD Critical care attestation.: If time is entered above; I have spent that time in minutes in the direct care of this critically ill patient, excluding procedure time. ED Disposition Clinical Impression: Epigastric abdominal pain Chest pain Qualifiers: Chest pain type: unspecified Qualified Code(s): R07.9 - Chest pain, unspecified Gastritis Qualifiers: Gastritis type: unspecified gastritis Chronicity: acute Gastritis bleeding: without bleeding Qualified Code(s): K29.00 - Acute gastritis without bleeding GERD (gastroesophageal reflux disease) Qualifiers: Esophagitis presence: with esophagitis Esophagitis bleeding: without hemorrhage Qualified Code(s): K21.00 - Gastro-esophageal reflux disease with esophagitis, without bleeding Disposition: DC-01 TO HOME OR SELFCARE Is pt being admited?: No Does the pt Need Aspirin: No Condition: Stable Instructions: Indigestion, [id number], Food Choices for Gastroesophageal Re flux Disease, Adult, Chest Wall Pain, [id number], Nonspecific Chest Pain, Adult Additional Instructions: Patient to follow-up with primary care in 2 to 3 days. Patient to follow-up with cardiology and gastroenterology in 2 to 3 days. Patient to rest. Patient to increase water. Patient to avoid strenuous exercise or heavy lifting until cleared by cardiology. Patient to take Tylenol as needed for pain. Patient to eat a reflux diet. Patient to take meds as directed. Patient to return to the ER if condition worsens, changes or new symptoms arise. Prescriptions: Esomeprazole Magnesium [NexIUM] 40 mg PO QDAY 30 Days #30 capsule. Referrals: PRIMARY CARE, [Primary Care Provider] - 2-3 Days JUNIOR SUAREZ MD [Staff Physician] - 2-3 Days ALEXANDREA MILLARD MD [Staff Physician] - 2-3 Days Time of Disposition: 04:35
[2020-09-15 04:33] VITALS: BP 110/66
--- NOTE | 2020-09-15 17:52 | Electrocardiograph Report ---
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
== END 2020-09-15 04:33 | disposition home or self-care (01) ==
LOC: ED 17:20
DX: K29.70 Gastritis, unspecified, without bleeding (principal); K21.9 Gastro-esophageal reflux disease without esophagitis; R07.89 Other chest pain; R10.13 Epigastric pain; I10 Essential (primary) hypertension; M19.91 Primary osteoarthritis, unspecified site; G43.909 Migraine, unspecified, not intractable, without status migrainosus; Z98.890 Other specified postprocedural states; Z79.899 Other long term (current) drug therapy; Z88.8 Allergy status to other drugs, medicaments and biological substances
CPT/HCPCS: 36415; 71046; 80053; 83690; 83735; 84484; 85025; 93005

== ENCOUNTER 2020-11-09 12:00 | Emergency (ER) | payer OTHER ==
[2020-11-09 12:35] VITALS: BP 127/69
[2020-11-09 14:23] LABS: Bacteria,Urine 1+ /HPF (Negative); Bilirubin,Urine NEG (Negative); Blood,Urine NEG (Negative); Color,Urine Yellow (Yellow); Mucus,Urine FEW /HPF; Protein,Urine <15 mg/dL mg/dL (Negative); Urobilinogen,Urine < 2.0 mg/dL (<2.0)
[2020-11-09 14:57] LABS: Basophils % (Auto) 0.7 % (0.0-1.8); Eosinophils # (Auto) 0.1 K/mm3 (0.0-0.4); Hemoglobin 11.3 gm/dl (10.1-14.3); Lymphocytes # (Auto) 1.5 K/mm3 (1.2-5.4); Lymphocytes % (Auto) 42.2 % (13.4-35.0); Mean Corpuscular HGB Conc 33 % (30-34); Mean Corpuscular Volume 94 fl (79-97); Monocytes # (Auto) 0.2 K/mm3 (0.0-0.8); Monocytes % (Auto) 6.8 % (0.0-7.3); Platelet Count 214 K/mm3 (140-440); Red Blood Count 3.62 M/mm3 (3.65-5.03); Red Cell Distribution Width 14.1 % (13.2-15.2)
[2020-11-09] MEDS ORDERED: SODIUM CHLORIDE 0.9% 1000 ML 1,000 ML IV ONE (15:25)
[2020-11-09] MEDS ORDERED: MORPHINE 4 MG/1 ML INJ IV ONE (15:25)
[2020-11-09] MEDS ORDERED: ONDANSETRON 4 MG/2 ML INJ IV ONE (15:25)
[2020-11-09 15:27] LABS: Alanine Aminotransferase 11 units/L (7-56); Albumin 4.2 g/dL (3.9-5); BUN/Creatinine Ratio 14; Blood Urea Nitrogen 11 mg/dL (7-17); Calcium 9.9 mg/dL (8.4-10.2); Hemolysis Index 2
--- NOTE | 2020-11-09 17:18 | Emergency Department Report ---
ED Abdominal Pain HPI - General Chief Complaint: Abdominal Pain Stated Complaint: STOMACH/BACK PAIN Time Seen by Provider: 11/09/20 15:06 Source: patient Mode of arrival: Ambulatory Limitations: No Limitations - History of Present Illness Initial Comments: This is a 55-year-old female nontoxic, well nourished in appearance, no acute signs of distress presents to the ED with c/o of nausea and abdominal pain several days. Patient denies any vomiting. Patient describes abdominal pain as cramping and aching with level of 8/10 diffuse. Patient denies chest pain, short of breath, fever, hemoptysis, blood in stool, chills, headache, stiff neck, numbness or tingling. Patient denies any diarrhea or constipation. Denies any blood in stool. Patient denies any recent travels. Patient stated allergies to Bactrim. MD Complaint: abdominal pain -: days(s) Location: diffuse Radiation: none Migration to: no migration Severity: mild Severity scale (0 -10): 8 Quality: cramping, aching Consistency: constant Improves With: nothing Worsens With: nothing Associated Symptoms: nausea. denies: vomiting, diarrhea, fever, chills, constipation, dysuria, hematemesis, hematochezia, melena, hematuria, anorexia, syncope - Related Data Home Medications Medication Instructions Recorded Confirmed Last Taken ALPRAZolam [Xanax TAB] 1 mg PO BID 01/10/15 01/17/17 01/16/17 Fluticasone [Flonase] 1 spray NS QDAY 01/10/15 01/17/17 Unknown Metoprolol [Lopressor TAB] 50 mg PO BID 01/10/15 01/17/17 01/16/17 Montelukast [Singulair] 10 mg PO QDAY 01/10/15 01/17/17 01/16/17 Potassium Chloride [K-Dur] 20 meq PO QDAY 01/10/15 01/17/17 01/16/17 Iron Fum,Ps/Folic/Bcomp,C No.9 1 each PO QDAY 09/29/15 01/17/17 01/16/17 [Integra Plus Capsule] Previous Rx's Medication Instructions Recorded Last Taken Type Nitrofurantoin [place]/M-Cryst 100 mg PO Q12HR 5 Days #10 capsule 02/21/20 Unknown Rx [Macrobid CAP] Phenazopyridine [Pyridium] 200 mg PO BID #6 tab 07/03/19 Unknown Rx Mag Hydrox/Aluminum Hyd/Simeth 15 ml PO TID PRN #1 bottle 02/29/20 Unknown Rx [Maalox Advanced Suspension] Sucralfate [Carafate] 1 gm PO ACHS 7 Days #21 tablet 02/29/20 Unknown Rx Esomeprazole Magnesium [NexIUM] 40 mg PO QDAY 30 Days #30 09/15/20 Unknown Rx capsule. Ondansetron [Zofran Odt] 4 mg PO Q8HR PRN #12 tab.rapdis 11/09/20 Unknown Rx Allergies Allergy/AdvReac Type Severity Reaction Status Date / Time sulfamethoxazole Allergy Rash Verified 11/09/20 12:31 [From ] trimethoprim [From ] Allergy Rash Verified 11/09/20 12:31 ED Review of Systems ROS: Stated complaint: STOMACH/BACK PAIN Other details as noted in HPI Comment: All other systems reviewed and negative Constitutional: denies: chills, fever Eyes: denies: eye pain, eye discharge, vision change ENT: denies: ear pain, throat pain Respiratory: denies: cough, shortness of breath, wheezing Cardiovascular: denies: chest pain, palpitations Endocrine: no symptoms reported Gastrointestinal: abdominal pain, nausea. denies: vomiting, diarrhea, constipation, hematemesis, melena, hematochezia Genitourinary: denies: urgency, dysuria, discharge Musculoskeletal: denies: back pain, joint swelling, arthralgia Skin: denies: rash, lesions Neurological: denies: headache, weakness, paresthesias Psychiatric: denies: anxiety, depression Hematological/Lymphatic: denies: easy bleeding, easy bruising ED Past Medical Hx - Past Medical History Hx Hypertension: Yes Hx Congestive Heart Failure: No Hx GERD: Yes Hx Arthritis: Yes Hx Headaches / Migraines: Yes Hx Psychiatric Treatment: Yes (anxiety stress) Hx HIV: No Additional medical history: MVP, BURSITIS, palpitations - Surgical History Additional Surgical History: colonoscopy 06/2012, PARTIAL HYSTERECTOMY - Social History Smoking Status: Never Smoker Substance Use Type: None - Medications Home Medications: Home Medications Medication Instructions Recorded Confirmed Last Taken Type ALPRAZolam [Xanax TAB] 1 mg PO BID 01/10/15 01/17/17 01/16/17 History Fluticasone [Flonase] 1 spray NS QDAY 01/10/15 01/17/17 Unknown History Metoprolol [Lopressor TAB] 50 mg PO BID 01/10/15 01/17/17 01/16/17 History Montelukast [Singulair] 10 mg PO QDAY 01/10/15 01/17/17 01/16/17 History Potassium Chloride [K-Dur] 20 meq PO QDAY 01/10/15 01/17/17 01/16/17 History Iron Fum,Ps/Folic/Bcomp,C No.9 1 each PO QDAY 09/29/15 01/17/17 01/16/17 History [Integra Plus Capsule] Nitrofurantoin [place]/M-Cryst 100 mg PO Q12HR 5 Days #10 capsule 07/03/19 Unknown Rx [Macrobid CAP] Phenazopyridine [Pyridium] 200 mg PO BID #6 tab 07/03/19 Unknown Rx Mag Hydrox/Aluminum Hyd/Simeth 15 ml PO TID PRN #1 bottle 02/29/20 Unknown Rx [Maalox Advanced Suspension] Sucralfate [Carafate] 1 gm PO ACHS 7 Days #21 tablet 02/29/20 Unknown Rx Esomeprazole Magnesium [NexIUM] 40 mg PO QDAY 30 Days #30 09/15/20 Unknown Rx capsule. Ondansetron [Zofran Odt] 4 mg PO Q8HR PRN #12 tab.rapdis 11/09/20 Unknown Rx ED Physical Exam - General Limitations: No Limitations General appearance: alert, in no apparent distress - Head Head exam: Present: atraumatic, normocephalic - Eye Eye exam: Present: normal appearance - Neck Neck exam: Present: normal inspection, full ROM. Absent: lymphadenopathy - Respiratory Respiratory exam: Present: normal lung sounds bilaterally. Absent: respiratory distress, wheezes, rales, rhonchi, stridor, chest wall tenderness, accessory muscle use, decreased breath sounds, prolonged expiratory - Cardiovascular Cardiovascular Exam: Present: regular rate, normal rhythm, normal heart sounds. Absent: bradycardia, tachycardia, irregular rhythm, systolic murmur, diastolic murmur, rubs, gallop - GI/Abdominal GI/Abdominal exam: Present: soft, tenderness (Umbilical area), normal bowel sounds. Absent: distended, guarding, rebound, rigid, diminished bowel sounds - Extremities Exam Extremities exam: Present: normal inspection, full ROM - Back Exam Back exam: Present: normal inspection, full ROM. Absent: tenderness, CVA tenderness (R), CVA tenderness (L), muscle spasm, paraspinal tenderness, vertebral tenderness, rash noted - Neurological Exam Neurological exam: Present: alert, oriented X3, normal gait - Psychiatric Psychiatric exam: Present: normal affect, normal mood - Skin Skin exam: Present: warm, dry, intact, normal color. Absent: rash ED Course Vital Signs 11/09/20 12:34 Temperature 98.5 F Pulse Rate 77 Respiratory 16 Rate Blood Pressure 127/69 O2 Sat by Pulse 100 Oximetry - Reevaluation(s) Reevaluation #1: 11/09/20 17:18 Patient is speaking in full sentences with no signs of distress noted. ED Medical Decision Making - Lab Data Result diagrams: 11/09/20 13:56 11/09/20 13:56 Lab Results 11/09/20 11/09/20 11/09/20 Range/Units 12:48 13:56 13:56 WBC 3.6 L (4.5-11.0) K/mm3 RBC 3.62 L (3.65-5.03) M/mm3 Hgb 11.3 (10.1-14.3) gm/dl Hct 34.0 (30.3-42.9) % MCV 94 (79-97) fl MCH 31 (28-32) pg MCHC 33 (30-34) % RDW 14.1 (13.2-15.2) % Plt Count 214 (140-440) K/mm3 Lymph % (Auto) 42.2 H (13.4-35.0) % [place] % (Auto) 6.8 (0.0-7.3) % Eos % (Auto) 2.0 (0.0-4.3) % Baso % (Auto) 0.7 (0.0-1.8) % Lymph # (Auto) 1.5 (1.2-5.4) K/mm3 [place] # (Auto) 0.2 (0.0-0.8) K/mm3 Eos # (Auto) 0.1 (0.0-0.4) K/mm3 Baso # (Auto) 0.0 (0.0-0.1) K/mm3 Seg Neutrophils % 48.3 (40.0-70.0) % Seg Neutrophils # 1.7 L (1.8-7.7) K/mm3 Sodium 142 (137-145) mmol/L Potassium 4.2 (3.6-5.0) mmol/L Chloride 108.8 H (98-107) mmol/L Carbon Dioxide 23 (22-30) mmol/L Anion Gap 14 mmol/L BUN 11 (7-17) mg/dL Creatinine 0.8 (0.6-1.2) mg/dL Estimated GFR > 60 ml/min BUN/Creatinine Ratio 14 % Glucose 86 (65-100) mg/dL Calcium 9.9 (8.4-10.2) mg/dL Total Bilirubin 0.80 (0.1-1.2) mg/dL AST 20 (5-40) units/L ALT 11 (7-56) units/L Alkaline Phosphatase 64 (35-129) units/L Total Protein 7.6 (6.3-8.2) g/dL Albumin 4.2 (3.9-5) g/dL Albumin/Globulin Ratio 1.2 % Lipase (13-60) units/L Urine Color Yellow (Yellow) Urine Turbidity Cloudy (Clear) Urine pH 6.0 (5.0-7.0) Ur Specific [place] 1.012 (1.003-1.030) Urine Protein <15 mg/dl (Negative) mg/dL Urine Glucose (UA) Neg (Negative) mg/dL Urine Ketones Neg (Negative) mg/dL Urine Blood Neg (Negative) Urine Nitrite Neg (Negative) Urine Bilirubin Neg (Negative) Urine Urobilinogen < 2.0 (<2.0) mg/dL Ur Leukocyte Esterase Neg (Negative) Urine WBC (Auto) 4.0 (0.0-6.0) /HPF Urine RBC (Auto) 1.0 (0.0-6.0) /HPF U Epithel Cells (Auto) 28.0 H (0-13.0) /HPF Urine Bacteria (Auto) 1+ (Negative) /HPF Urine Mucus Few /HPF /30/ Range/Units 13:56 WBC (4.5-11.0) K/mm3 RBC (3.65-5.03) M/mm3 Hgb (10.1-14.3) gm/dl Hct (30.3-42.9) % MCV (79-97) fl MCH (28-32) pg MCHC (30-34) % RDW (13.2-15.2) % Plt Count (140-440) K/mm3 Lymph % (Auto) (13.4-35.0) % [place] % (Auto) (0.0-7.3) % Eos % (Auto) (0.0-4.3) % Baso % (Auto) (0.0-1.8) % Lymph # (Auto) (1.2-5.4) K/mm3 [place] # (Auto) (0.0-0.8) K/mm3 Eos # (Auto) (0.0-0.4) K/mm3 Baso # (Auto) (0.0-0.1) K/mm3 Seg Neutrophils % (40.0-70.0) % Seg Neutrophils # (1.8-7.7) K/mm3 Sodium (137-145) mmol/L Potassium (3.6-5.0) mmol/L Chloride (98-107) mmol/L Carbon Dioxide (22-30) mmol/L Anion Gap mmol/L BUN (7-17) mg/dL Creatinine (0.6-1.2) mg/dL Estimated GFR ml/min BUN/Creatinine Ratio % Glucose (65-100) mg/dL Calcium (8.4-10.2) mg/dL Total Bilirubin (0.1-1.2) mg/dL AST (5-40) units/L ALT (7-56) units/L Alkaline Phosphatase (35-129) units/L Total Protein (6.3-8.2) g/dL Albumin (3.9-5) g/dL Albumin/Globulin Ratio % Lipase 16 (13-60) units/L Urine Color (Yellow) Urine Turbidity (Clear) Urine pH (5.0-7.0) Ur Specific [place] (1.003-1.030) Urine Protein (Negative) mg/dL Urine Glucose (UA) (Negative) mg/dL Urine Ketones (Negative) mg/dL Urine Blood (Negative) Urine Nitrite (Negative) Urine Bilirubin (Negative) Urine Urobilinogen (<2.0) mg/dL Ur Leukocyte Esterase (Negative) Urine WBC (Auto) (0.0-6.0) /HPF Urine RBC (Auto) (0.0-6.0) /HPF U Epithel Cells (Auto) (0-13.0) /HPF Urine Bacteria (Auto) (Negative) /HPF Urine Mucus /HPF - Medical Decision Making This is a 55-year-old female that presents with umbilical hernia with diverticulosis. Patient is stable and was examined by me. Labs obtained. UA obtained. CT of abdomen obtained and dictated by the radiologist. Patient is notified of the report with no questions noted by the patient. Vital signs are stable prior to discharge. Patient received medical treatment in the ED which patient stated symptoms has resovled and subsided. Was instructed note to operate any machinery due to possible drowsiness and stated someone will drive the patient home. A by mouth challenge has been obtained and patient tolerated well with no nausea vomiting. Patient was notified of strict precatuions of appendictis symptoms and to return to the ED if symptoms occurs as soon as possible. Patient was also instructed to Follow-up with a primary care and staffing and scheduling coordinator doctor in 3-5 days or if symptoms worsen and continue return to emergency room as soon as possible. At time of discharge, the patient does not seem toxic or ill in appearance. No acute signs of distress noted. Patient agrees to discharge treatment plan of care. No further questions noted by the patient. Critical care attestation.: If time is entered above; I have spent that time in minutes in the direct care of this critically ill patient, excluding procedure time. ED Disposition Clinical Impression: Diverticulosis Umbilical hernia Qualifiers: Obstruction and gangrene presence: without obstruction or gangrene Qualified Code(s): K42.9 - Umbilical hernia without obstruction or gangrene Disposition: DC-01 TO HOME OR SELFCARE Is pt being admited?: No Does the pt Need Aspirin: No Condition: Stable Instructions: Abdominal Pain (ED), Umbilical Hernia, Adult, Diverticulosis Additional Instructions: Follow-up with a primary care and staffing and scheduling coordinator doctor in 3-5 days or if symptoms worsen and continue return to emergency room as soon as possible. Prescriptions: Ondansetron [Zofran Odt] 4 mg PO Q8HR PRN #12 tab.rapdis PRN Reason: Nausea Referrals: PRIMARY CARE, [Primary Care Provider] - 3-5 Days ZAK VELASQUEZ MD [Staff Physician] - 3-5 Days [facility] [Provider Group] - 3-5 Days Forms: Work/School Release Form(ED) Time of Disposition: 18:05
[2020-11-09] MEDS ORDERED: MORPHINE 4 MG/1 ML INJ ONE (17:54)
[2020-11-09] MEDS ORDERED: ONDANSETRON 4 MG/2 ML INJ ONE (17:54)
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
== END 2020-11-09 19:20 | disposition home or self-care (01) ==
LOC: ED 12:00
DX: K42.9 Umbilical hernia without obstruction or gangrene (principal); K57.90 Diverticulosis of intestine, part unspecified, without perforation or abscess without bleeding; I10 Essential (primary) hypertension; K21.9 Gastro-esophageal reflux disease without esophagitis; M19.91 Primary osteoarthritis, unspecified site; G43.909 Migraine, unspecified, not intractable, without status migrainosus; F41.9 Anxiety disorder, unspecified; Z98.890 Other specified postprocedural states; Z79.899 Other long term (current) drug therapy; Z88.8 Allergy status to other drugs, medicaments and biological substances
CPT/HCPCS: 36415; 74177; 80053; 81001; 83690; 85025; 96360; 99284; J7030; Q9967; J2270; J2405

== ENCOUNTER 2021-04-13 11:36 | Emergency (ER) | payer OTHER ==
[2021-04-13] MEDS ORDERED: IBUPROFEN 800 MG TAB PO ONE (12:52)
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
[2021-04-13 14:15] VITALS: BP 123/76
== END 2021-04-13 14:13 | disposition home or self-care (01) ==
LOC: ED 11:36
DX: M79.18 Myalgia, other site (principal); R07.89 Other chest pain; M54.50 Low back pain, unspecified; Z88.2 Allergy status to sulfonamides; Z88.8 Allergy status to other drugs, medicaments and biological substances; V89.2XXA Person injured in unspecified motor-vehicle accident, traffic, initial encounter; Y93.89 Activity, other specified; Y92.488 Other paved roadways as the place of occurrence of the external cause; Y99.8 Other external cause status
CPT/HCPCS: 71046; 72040; 72070; 72100; 99283

== ENCOUNTER 2021-12-02 14:56 | Emergency (ER) | payer OTHER ==
--- NOTE | 2021-12-02 17:06 | Emergency Department Report ---
ED Chest Pain HPI - General Chief Complaint: Dizziness Stated Complaint: DIZZY/EAR PAIN/CHEST PAIN Time Seen by Provider: 12/02/21 17:04 Source: patient Mode of arrival: Ambulatory Limitations: No Limitations - History of Present Illness MD Complaint: chest pain -: Gradual, days(s) (3) Pain Location: substernal Quality: aching, sharp Consistency: constant Worsens With: palpation re: denies: nausea, vomting, dyspnea, sense of impending doom Other Symptoms: denies: acid taste in mouth, leg swelling Treatments Prior to Arrival: none - Related Data Home Medications Medication Instructions Recorded Confirmed Last Taken ALPRAZolam [Xanax TAB] 1 mg PO BID 01/10/15 01/17/17 01/16/17 Fluticasone [Flonase] 1 spray NS QDAY 01/10/15 01/17/17 Unknown Metoprolol [Lopressor TAB] 50 mg PO BID 01/10/15 01/17/17 01/16/17 Montelukast [Singulair] 10 mg PO QDAY 01/10/15 01/17/17 01/16/17 Potassium Chloride [K-Dur] 20 meq PO QDAY 01/10/15 01/17/17 01/16/17 Iron Fum,Ps/Folic/Bcomp,C No.9 1 each PO QDAY 09/29/15 01/17/17 01/16/17 [Integra Plus Capsule] Previous Rx's Medication Instructions Recorded Last Taken Type Nitrofurantoin [place]/M-Cryst 100 mg PO Q12HR 5 Days #10 capsule 07/03/19 Unknown Rx [Macrobid CAP] Phenazopyridine [Pyridium] 200 mg PO BID #6 tab 07/03/19 Unknown Rx Mag Hydrox/Aluminum Hyd/Simeth 15 ml PO TID PRN #1 bottle 02/29/20 Unknown Rx [Maalox Advanced Suspension] Sucralfate [Carafate] 1 gm PO ACHS 7 Days #21 tablet 02/29/20 Unknown Rx Esomeprazole Magnesium [NexIUM] 40 mg PO QDAY 30 Days #30 09/15/20 Unknown Rx capsule. Ondansetron [Zofran Odt] 4 mg PO Q8HR PRN #12 tab.rapdis 11/09/20 Unknown Rx Ketorolac [Toradol] 10 mg PO Q6H PRN #14 tablet 04/13/21 Unknown Rx methOCARBAMOL [Robaxin TAB] 500 mg PO Q6H PRN #14 tablet 04/13/21 Unknown Rx Allergies Allergy/AdvReac Type Severity Reaction Status Date / Time sulfamethoxazole Allergy Rash Verified 04/13/21 12:49 [From ] trimethoprim [From ] Allergy Rash Verified 04/13/21 12:49 Heart Score - HEART Score History: Slightly suspicious EKG: Normal Age: 45-65 Risk factors: 1-2 risk factors Troponin: < normal limit HEART Score: 2 ED Review of Systems ROS: Stated complaint: DIZZY/EAR PAIN/CHEST PAIN Other details as noted in HPI ED Past Medical Hx - Past Medical History Hx Hypertension: Yes Hx Congestive Heart Failure: No Hx GERD: Yes Hx Arthritis: Yes Hx Headaches / Migraines: Yes Hx Psychiatric Treatment: Yes (anxiety stress) Hx HIV: No Additional medical history: MVP, BURSITIS, palpitations - Surgical History Additional Surgical History: colonoscopy 06/2012, PARTIAL HYSTERECTOMY - Social History Smoking Status: Never Smoker Substance Use Type: None - Medications Home Medications: Home Medications Medication Instructions Recorded Confirmed Last Taken Type ALPRAZolam [Xanax TAB] 1 mg PO BID 01/10/15 01/17/17 01/16/17 History Fluticasone [Flonase] 1 spray NS QDAY 01/10/15 01/17/17 Unknown History Metoprolol [Lopressor TAB] 50 mg PO BID 01/10/15 01/17/17 01/16/17 History Montelukast [Singulair] 10 mg PO QDAY 01/10/15 01/17/17 01/16/17 History Potassium Chloride [K-Dur] 20 meq PO QDAY 01/10/15 01/17/17 01/16/17 History Iron Fum,Ps/Folic/Bcomp,C No.9 1 each PO QDAY 09/29/15 01/17/17 01/16/17 History [Integra Plus Capsule] Nitrofurantoin [place]/M-Cryst 100 mg PO Q12HR 5 Days #10 capsule 07/03/19 Unknown Rx [Macrobid CAP] Phenazopyridine [Pyridium] 200 mg PO BID #6 tab 07/03/19 Unknown Rx Mag Hydrox/Aluminum Hyd/Simeth 15 ml PO TID PRN #1 bottle 02/29/20 Unknown Rx [Maalox Advanced Suspension] Sucralfate [Carafate] 1 gm PO ACHS 7 Days #21 tablet 02/29/20 Unknown Rx Esomeprazole Magnesium [NexIUM] 40 mg PO QDAY 30 Days #30 09/15/20 Unknown Rx capsule. Ondansetron [Zofran Odt] 4 mg PO Q8HR PRN #12 tab.rapdis 11/09/20 Unknown Rx Ketorolac [Toradol] 10 mg PO Q6H PRN #14 tablet 04/13/21 Unknown Rx methOCARBAMOL [Robaxin TAB] 500 mg PO Q6H PRN #14 tablet 04/13/21 Unknown Rx ED Physical Exam - General Limitations: No Limitations General appearance: alert, in no apparent distress - Head Head exam: Present: atraumatic, normocephalic - Eye Eye exam: Present: normal appearance - ENT ENT exam: Present: mucous membranes moist - Neck Neck exam: Present: normal inspection - Respiratory Respiratory exam: Present: normal lung sounds bilaterally, chest wall tenderness (sternal region). Absent: respiratory distress - Cardiovascular Cardiovascular Exam: Present: regular rate, normal rhythm. Absent: systolic murmur, diastolic murmur, rubs, gallop - GI/Abdominal GI/Abdominal exam: Present: soft, normal bowel sounds - Extremities Exam Extremities exam: Present: normal inspection - Back Exam Back exam: Present: normal inspection - Neurological Exam Neurological exam: Present: alert, oriented X3 - Psychiatric Psychiatric exam: Present: normal affect, normal mood - Skin Skin exam: Present: warm, dry, intact, normal color. Absent: rash ED Course Vital Signs 12/02/21 16:00 Temperature 98 F Pulse Rate 72 Respiratory 18 Rate Blood Pressure 139/69 [Left] O2 Sat by Pulse 99 Oximetry JHOAN score - Jhoan Score Age > 65: (0) No Aspirin use within the Past 7 Days: (0) No 3 or more CAD Risk Factors: (0) No 2 or more Angina events in past 24 hrs: (1) Yes Known CAD with more than 50% Stenosis: (0) No Elevated Cardiac Markers: (0) No ST Deviation Greater than 0.5mm: (0) No JHOAN Score: 1 ED Medical Decision Making - Lab Data Result diagrams: 12/02/21 17:17 12/02/21 17:17 - EKG Data EKG shows normal: sinus rhythm Rate: normal - EKG Data Interpretation: normal EKG - Radiology Data Radiology results: report reviewed [facility] [address] [place] [address] XRay Report Signed Patient: JESSICA YA V MR#: [id number] : 1965 Acct:[id number] Age/Sex: 56 / F ADM Date: 12/02/21 Loc: ED Attending Dr: Ordering Physician: KAIDEN HERNANDEZ Date of Service: 12/02/21 Procedure(s): XR chest routine 2V Accession Number(s): [id number] cc: KAIDEN HERNANDEZ Fluoro Time In Minutes: CHEST 2 VIEWS INDICATION / CLINICAL INFORMATION: Chest Pain. COMPARISON: 04/13/2021 FINDINGS: SUPPORT DEVICES: None. HEART / MEDIASTINUM: No significant abnormality. LUNGS / PLEURA: No significant pulmonary or pleural abnormality. No pneumothorax. ADDITIONAL FINDINGS: No significant additional findings. IMPRESSION: 1. No acute findings. Signer Name: Eliot Kiser MD Signed: 12/02/2021 6:02 PM Workstation Name: [id number] Transcribed By: TL Dictated By: Eliot Kiser MD Electronically Authenticated By: Eliot Kiser MD Signed Date/Time: 12/02/211801 - Medical Decision Making This patient presents with chest pain that is very unlikely angina or acute coronary syndrome. The emergency department evaluation has not identified any cause for suspicion that this chest pain has a cardiac etiology. Based on their history, EKG (which showed no evidence of ischemia or infarction) and imaging, in addition to the patient's physical exam, I see no evidence at this time for a malignant etiology for the patient's chest pain. There is no acute evidence for pulmonary embolus, acute myocardial infarction, pneumothorax, Boerhaeve syndrome, cardiac tamponade, thoracic artery dissection, or any other emergent cardiac, pulmonary or aortic pathology. Given the low pre-test probability for cardiac etiology of chest pain and the absence of any sign of ischemia or infarction, discharge for outpatient follow-up and further evaluation is reasonable. I have explained to the patient that even though a cardiac problem is very unlikely, follow-up and further testing is required to reduce further the already small uncertainty that exists. Other life-threatening diagnoses have been considered. The patient understands the need to return immediately if their symptoms worsen or they develop any new symptoms, and not to engage in any significant exertional activity until follow-up is obtained. Critical care attestation.: If time is entered above; I have spent that time in minutes in the direct care of this critically ill patient, excluding procedure time. ED Disposition Clinical Impression: Chest pain Disposition: HOME / SELF CARE / HOMELESS Is pt being admited?: No Does the pt Need Aspirin: No Condition: Stable Instructions: Nonspecific Chest Pain, Adult Additional Instructions: You were evaluated emergency department today for chest pain. 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 Please schedule an appointment for follow-up with your primary care physician as soon as possible. Return to emergency department if you expands worsening uncontrolled chest pain, shortness of breath, lightheadedness, feeling faint, nausea, vomiting or any other concerning symptoms. Referrals: PRIMARY MD BEVERLY [Primary Care Provider] - 3-5 Days YAHAIRA FERREIRA MD [Staff Physician] - 3-5 Days
[2021-12-02 18:03] LABS: Basophils % (Auto) 0.7 % (0.0-1.8); Eosinophils # (Auto) 0.1 K/mm3 (0.0-0.4); Eosinophils % (Auto) 0.9 % (0.0-4.3); Hematocrit 37.7 % (30.3-42.9); Hemoglobin 12.2 gm/dl (10.1-14.3); Lymphocytes # (Auto) 2.8 K/mm3 (1.2-5.4); Lymphocytes % (Auto) 47.8 % (13.4-35.0); Mean Corpuscular HGB Conc 33 % (30-34); Mean Corpuscular Volume 92 fl (79-97); Monocytes # (Auto) 0.4 K/mm3 (0.0-0.8); Monocytes % (Auto) 6.1 % (0.0-7.3); Platelet Count 216 K/mm3 (140-440); Red Blood Count 4.08 M/mm3 (3.65-5.03); Red Cell Distribution Width 13.2 % (13.2-15.2)
--- NOTE | 2021-12-02 18:07 | XRay Report ---
CHEST 2 VIEWS INDICATION / CLINICAL INFORMATION: Chest Pain. COMPARISON: 04/13/2021 FINDINGS: SUPPORT DEVICES: None. HEART / MEDIASTINUM: No significant abnormality. LUNGS / PLEURA: No significant pulmonary or pleural abnormality. No pneumothorax. ADDITIONAL FINDINGS: No significant additional findings. IMPRESSION: 1. No acute findings. Signer Name: Eliot Kiser MD Signed: 12/02/2021 6:02 PM Workstation Name: [id number]
[2021-12-02 18:13] LABS: INR 0.97 (0.87-1.13)
[2021-12-02 18:31] LABS: Alanine Aminotransferase 13 units/L (7-56); Albumin 4.3 g/dL (3.9-5); Blood Urea Nitrogen 13 mg/dL (7-17); Calcium 9.9 mg/dL (8.4-10.2); Hemolysis Index 74
[2021-12-02 18:38] LABS: BUN/Creatinine Ratio 19
[2021-12-02 22:22] VITALS: BP 132/61
--- NOTE | 2021-12-04 10:00 | Electrocardiograph Report ---
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
== END 2021-12-02 22:22 | disposition home or self-care (01) ==
LOC: ED 14:56
DX: R07.9 Chest pain, unspecified (principal); I10 Essential (primary) hypertension; Z88.2 Allergy status to sulfonamides
CPT/HCPCS: 36415; 71046; 80053; 84484; 85025; 85610; 93005; 99283